=== PATIENT | female | born 1945 | race Caucasian/White ===

== ENCOUNTER 2018-06-02 06:34 | Emergency (ER) | payer BC, MEDICARE, OTHER ==
[~2018-06-02] VITALS: Ht 180.3 cm; Wt 99.8 kg
[~2018-06-02 06:34] MED LIST: CARV3.1246 PO; ESTR0.755 PO; FURO20TA4 PO; LAMO150T2 PO; LISI2.5T48 PO; METF-379 PO; SIMV5TAB2 PO
[2018-06-02 06:47] VITALS: BP_SYST 212
[2018-06-02] MEDS ORDERED: ONDANSETRON HCL 4 MG/2 ML VIAL IVP ONE (07:00)
[2018-06-02] MEDS ORDERED: NACL 0.9% 1,000 ML IV ONE (07:00)
[2018-06-02] MEDS ORDERED: MORPHINE 4 MG/ML INJ. SYRINGE IVP ONE (07:00)
[2018-06-02] MEDS ORDERED: hydrALAZINE HCL 20 MG/ML VIAL IVP ONE ×2 (07:00→10:00)
[2018-06-02] MEDS ORDERED: PROCHLORPERAZINE EDISYLATE 10 MG/2 ML VIAL IVP ONE (08:30)
[2018-06-02] MEDS ORDERED: KETOROLAC TROMETHAMINE 15 MG VIAL IVP ONE (08:30)
[2018-06-02] MEDS ORDERED: cloNIDine HCL 0.1 MG TABLET PO ONE ×2 (08:30→14:30)
[2018-06-02] MEDS ORDERED: DIPHENHYDRAMINE INJ 50 MG/ML VIAL IVP ONE (08:30)
[2018-06-02 08:32] LABS: ANION GAP 9 (5-15); CALCIUM 8.4 mg/dL (8.4-11.0); CHLORIDE 100 mmol/L (98-107); CREATININE 0.92 mg/dL (0.55-1.30); GLUCOSE 156 mg/dL (70-99); POTASSIUM 3.4 mmol/L (3.5-5.1); SODIUM SERUM 133 mmol/L (136-145); UREA NITROGEN, BLOOD 18 mg/dL (8-21)
[2018-06-02 08:34] LABS: HEMATOCRIT 39.1 % (36-48); HEMOGLOBIN 13.2 g/dL (12.0-16.0); MEAN CORPUSCULAR HEMOGLOBIN 31 pg (27-31); MEAN CORPUSCULAR HGB CONC 34 % (32-36); MEAN CORPUSCULAR VOLUME 91 fL (79.0-98.0); PLATELET COUNT (AUTO) 219 K/uL (130-430); RED BLOOD CELL COUNT(AUTO) 4.31 MIL/uL (4.2-6.2); RED CELL DISTRIBUTION WIDTH 12.6 % (9.0-15.0); WHITE BLOOD COUNT (AUTO) 10.9 K/uL (4.8-10.8)
[2018-06-02 08:35] LABS: BASOPHILS % (AUTO) 0.4 % (0.0-2.0); EOSINOPHILS # (AUTO) 0.2 K/uL (0.0-0.4); LYMPHOCYTES % (AUTO) 8.9 % (20.5-51.5); MONOCYTES # (AUTO) 0.5 K/uL (0.0-1.0); MONOCYTES % (AUTO) 4.1 % (1.7-9.3); NEUTROPHILS # (AUTO) 9.2 K/uL (1.8-7.7); NEUTROPHILS % (AUTO) 84.6 % (40.0-70.0)
[2018-06-02 08:36] LABS: ALANINE AMINOTRANSFERASE 17 U/L (12-78); ALBUMIN 3.3 g/dL (3.4-4.8); ASPARTATE AMINOTRANSFERASE 17 U/L (10-37); TOTAL BILIRUBIN 1.1 mg/dL (0.0-1.0)
[2018-06-02] MEDS ORDERED: cloNIDine HCL 0.1 MG TABLET ONE (08:45)
[2018-06-02] MEDS ORDERED: fentaNYL CITRATE/PF 100 MCG/2 ML AMP IVP ONE (10:45)
[2018-06-02] MEDS ORDERED: ACETAMINOPHEN 500 MG TABLET PO ONE (14:30)
[2018-06-02 15:00] VITALS: BP_SYST 192
== END 2018-06-02 15:00 | disposition short-term general hospital (02) ==
LOC: SED 06:34
DX: I16.9 Hypertensive crisis, unspecified (principal); G43.919 Migraine, unspecified, intractable, without status migrainosus; E11.9 Type 2 diabetes mellitus without complications; Z79.899 Other long term (current) drug therapy
CPT/HCPCS: 36415; 70450; 80053; 85025; 93005; 96361; 96374; 96375; 96376; 99291; J0360; J0780; J1200; J1885; J2270; J3010; J2405; J7030

== ENCOUNTER 2023-10-12 04:00 | Emergency (ER) | payer MEDICARE ==
[~2023-10-12] VITALS: Ht 177.8 cm; Wt 106.6 kg
[~2023-10-12 04:00] MED LIST changes: -FURO20TA4 PO; -LAMO150T2 PO; -METF-379 PO
[2023-10-12 04:05] VITALS: BP_SYST 207; PULSE 71; RESP 20; TEMP 97.1; O2SAT 98
[2023-10-12] MEDS: hydrALAZINE HCL 20 MG/ML VIAL IVP ONE (04:25)
[2023-10-12 05:14] LABS: BASOPHILS % (AUTO) 0.4 % (0.0-2.0); EOSINOPHILS % (AUTO) 0.5 % (0.0-4.0); HEMATOCRIT 33.8 % (36-48); HEMOGLOBIN 11.5 g/dL (12.0-16.0); LYMPHOCYTES # (AUTO) 0.7 K/uL (1.0-5.5); LYMPHOCYTES % (AUTO) 6.5 % (20.5-51.5); MEAN CORPUSCULAR HEMOGLOBIN 32 pg (27-31); MEAN CORPUSCULAR HGB CONC 34 % (32-36); MEAN CORPUSCULAR VOLUME 94 fL (79.0-98.0); MONOCYTES # (AUTO) 0.4 K/uL (0.0-1.0); MONOCYTES % (AUTO) 3.6 % (1.7-9.3); NEUTROPHILS # (AUTO) 9.2 K/uL (1.8-7.7); PLATELET COUNT (AUTO) 249 K/uL (130-430); RED BLOOD CELL COUNT(AUTO) 3.61 MIL/uL (4.2-6.2); RED CELL DISTRIBUTION WIDTH 12.6 % (9.0-15.0); WHITE BLOOD COUNT (AUTO) 10.4 K/uL (4.8-10.8)
[2023-10-12] MEDS: MORPHINE 4 MG INJ. 4 MG/ML VIAL IVP ONE (05:20)
[2023-10-12 05:24] LABS: ANION GAP 13 (5-15); CALCIUM 9.1 mg/dL (8.4-11.0); CARBON DIOXIDE 23 mmol/L (23-29); CHLORIDE 101 mmol/L (98-107); CREATININE 2.44 mg/dL (0.55-1.30); GLUCOSE 141 mg/dL (74-106); POTASSIUM 3.7 mmol/L (3.5-5.1); SODIUM SERUM 137 mmol/L (136-145); UREA NITROGEN, BLOOD 44 mg/dL (8-21)
[2023-10-12] MEDS: LABETALOL HCL 20 MG/4 ML CARTRIDGE IVP ONE (06:09)
[2023-10-12] MEDS ORDERED: FURO-149 PO (06:35)
[2023-10-12] MEDS ORDERED: ISOS60TA71 PO (06:35)
[2023-10-12] MEDS ORDERED: LISI-652 PO (06:35)
[2023-10-12] MEDS ORDERED: OCUVITE PO (06:35)
[2023-10-12] MEDS ORDERED: CEL20 PO (06:35)
[2023-10-12] MEDS ORDERED: ASPI-1393 PO (06:35)
[2023-10-12] MEDS ORDERED: COR25 PO (06:35)
[2023-10-12] MEDS ORDERED: SODI325T PO (06:35)
[2023-10-12] MEDS ORDERED: ESTR0.5T4 PO (06:35)
[2023-10-12 07:27] LABS: BILIRUBIN,URINE NEGATIVE (NEGATIVE); CLARITY/URINE CLEAR (CLEAR); COLOR,URINE YELLOW (YELLOW); GLUCOSE,URINE NEGATIVE (NEGATIVE); KETONES,URINE NEGATIVE (NEGATIVE); LEUKOCYTE ESTERASE ,URINE NEGATIVE (NEGATIVE); NITRITE, URINE NEGATIVE (NEGATIVE); PROTEIN URINE 3+ (NEGATIVE); UROBILINOGEN,URINE 0.2 (0.2-1.0)
[2023-10-12 07:31] LABS: BLOOD, URINE TRACE (NEGATIVE)
[2023-10-12] MEDS: HYDROcodone/ACETAMIN 10-325 MG TAB PO ONE (08:26)
[2023-10-12] MEDS: KETOROLAC TROMETHAMINE 15 MG VIAL IVP ONE (08:27)
[2023-10-12 08:51] LABS: BACTERIA,URINE FEW /HPF (None Seen); RBC,URINE 0-3 /HPF (0-3); WBC,URINE NONE SEEN /HPF (0-3)
[2023-10-12 08:52] LABS: MUCUS,URINE 1+ /LPF (None Seen)
[2023-10-12 11:16] VITALS: BP_SYST 175; PULSE 81; RESP 16; TEMP 97.1; O2SAT 92
== END 2023-10-12 10:20 | disposition short-term general hospital (02) ==
LOC: SED 04:00
DX: I16.0 Hypertensive urgency (principal); M25.551 Pain in right hip; R10.2 Pelvic and perineal pain; E11.9 Type 2 diabetes mellitus without complications; I10 Essential (primary) hypertension; Z79.899 Other long term (current) drug therapy; Z79.2 Long term (current) use of antibiotics; Z79.82 Long term (current) use of aspirin
CPT/HCPCS: 99285; 96374; 96375; 72192; 80048; 81001; 85025; 84484; 36415; 93005; J0360; J1885; J2270; 81000; 81015